=== PATIENT | male | born 1945 | race Caucasian/White ===

== ENCOUNTER → 2019-05-08 | Outpatient (CLI) | payer OTHER ==
[~2019-05-08] MED LIST: APIX5TAB PO; ATOR40TA69 PO; CLOP75TA14 PO; LOSA50TA2 PO; METF-444 PO; METO50 PO; PRED10B PO; SPIR25TA PO; TAMS-1 PO
== END | disposition home or self-care (01) ==
LOC: RAH 13:33
PROVIDERS: ATTEND Internal Medicine Cardiovascular Disease
DX: I42.9 Cardiomyopathy, unspecified (principal)
CPT/HCPCS: 78481; A9512

== ENCOUNTER 2022-02-23 10:57 | Emergency (ER) | payer OTHER ==
[~2022-02-23] VITALS: Ht 185.4 cm; Wt 126.1 kg
[~2022-02-23 10:57] MED LIST changes: +CLOP-31 PO; -CLOP75TA14 PO
[2022-02-23 11:47] LABS: BASOPHILS % (AUTO) 0.6 % (0.0-5.0); HEMATOCRIT 43.1 % (42-54); LYMPHOCYTES % (AUTO) 16.7 % (21.0-51.0); MEAN CORPUSCULAR HEMOGLOBIN 31.4 pg (27.0-33.0); MEAN CORPUSCULAR HGB CONC 33.4 g/dL (32.0-36.0); MEAN CORPUSCULAR VOLUME 93.9 fL (79-99); MONOCYTES % (AUTO) 5.8 % (3.0-13.0); NEUTROPHILS % (AUTO) 75.5 % (40.0-77.0); PLATELET COUNT (AUTO) 253 K/uL (130-400); RED BLOOD CELL COUNT(AUTO) 4.59 MIL/uL (4.50-6.20); RED CELL DISTRIBUTION WIDTH 13.4 % (11.0-15.5); WHITE BLOOD COUNT (AUTO) 10.5 K/uL (4.8-10.8)
[2022-02-23 11:49] LABS: CARBON DIOXIDE 27 mmol/L (21-32); CHLORIDE 99 mmol/L (101-111); CREATININE 1.3 mg/dL (0.5-1.5); GLOMERULAR FILTR. RATE CALC 57 mL/min (>60); GLUCOSE,RANDOM 135 mg/dL (70-105); POTASSIUM 4.4 mmol/L (3.5-5.1); SODIUM SERUM 134 mmol/L (136-145); UREA NITROGEN, BLOOD 14 mg/dL (7-18)
[2022-02-23 11:55] LABS: ALANINE AMINOTRANSFERASE 39 U/L (12-78); ALBUMIN 3.8 g/dL (3.5-5.0); ASPARTATE AMINOTRANSFERASE 22 U/L (10-37); CREATINE KINASE, TOTAL 94 U/L (21-232); TOTAL PROTEIN, SERUM 7.3 g/dL (6.0-8.3)
[2022-02-23 12:02] LABS: CRP QUANTITATIVE < 2.00 mg/L (0.00-9.0)
[2022-02-23] MEDS ORDERED: MAGNESIUM 4GM PREMIX 100ML 100 ML IV PRN (12:30)
[2022-02-23 12:49] LABS: APPEARANCE,URINE CLEAR (CLEAR); BILIRUBIN,URINE NEGATIVE (NEGATIVE); COLOR,URINE YELLOW (YELLOW); GLUCOSE, URINE (UA) 50 mg/dL (NEGATIVE); KETONES,URINE NEGATIVE (NEGATIVE); LEUKOCYTE ESTERASE ,URINE NEGATIVE Leu/uL (NEGATIVE); NITRATE,URINE NEGATIVE (NEGATIVE); OCCULT BLOOD,URINE NEGATIVE (NEGATIVE); PROTEIN,URINE NEGATIVE (NEGATIVE); UROBILINOGEN,URINE 0.2 mg/dL (0.2-1.0)
[2022-02-23 13:16] LABS: RBC,URINE 0-1 /HPF (0-1); WBC,URINE 0-1 /HPF (0-1)
[2022-02-23 16:13] VITALS: BP 122/65
[2022-02-23] MEDS ORDERED: ASPI-1197 PO (18:56)
[2022-02-23] MEDS ORDERED: AMLO-257 PO (18:56)
[2022-02-23] MEDS ORDERED: PANT40TA54 PO (18:56)
[2022-02-23] MEDS ORDERED: MULT-1268 PO (18:58)
== END 2022-02-23 16:32 | disposition home or self-care (01) ==
LOC: EDH 10:57
DX: E83.42 Hypomagnesemia (principal); R53.1 Weakness; E11.9 Type 2 diabetes mellitus without complications; I10 Essential (primary) hypertension; E66.9 Obesity, unspecified; Z68.36 Body mass index [BMI] 36.0-36.9, adult; K21.9 Gastro-esophageal reflux disease without esophagitis; E78.00 Pure hypercholesterolemia, unspecified; Z79.899 Other long term (current) drug therapy; Z79.84 Long term (current) use of oral hypoglycemic drugs
CPT/HCPCS: 99284; 96365; 70450; 71045; 96366; 82550; 83735; 84484; 80053; 85025; 87804 ×2; 86140; 81001; 36415; 93005; J3475; 96361